=== PATIENT | male | born 1975 | race Caucasian/White ===

== ENCOUNTER 2023-03-14 08:06 | Emergency (ER) | payer OTHER, MEDICAID ==
[~2023-03-14] VITALS: Ht 170.2 cm; Wt 74.8 kg
[2023-03-14 08:15] VITALS: BP 110/76
[2023-03-14] MEDS ORDERED: SODIUM PHOSPHATE 118 ML ENEM RC ONE (09:40)
--- NOTE | 2023-03-14 09:42 | NUR ---
patient presents to er with home health care case manager c/o gen weakness, constipation no BM past 4 days.
[2023-03-14] MEDS ORDERED: MIRABULK PO (10:47)
[2023-03-14 11:38] VITALS: BP 118/60
--- NOTE | 2023-03-14 11:40 | NUR ---
patient condition stable no pain nausea vomitign ambulatory d/c home with instructions after care reviewed understood left er with leather polisher.
== END 2023-03-14 09:30 | disposition home or self-care (01) ==
LOC: MED 08:06
DX: K59.00 Constipation, unspecified (principal); F20.9 Schizophrenia, unspecified
CPT/HCPCS: 74022; 99284

== ENCOUNTER 2023-07-21 14:13 | Emergency (ER) | payer OTHER, MEDICAID ==
[~2023-07-21] VITALS: Ht 172.7 cm; Wt 63.5 kg
[~2023-07-21 14:13] MED LIST: MIRABULK PO
[2023-07-21 14:23] VITALS: BP 118/62; PULSE 78; RESP 18; TEMP 97; O2SAT 98
[2023-07-21 14:59] LABS: BASOPHILS % (AUTO) 0.5 % (0.0-2.0); EOSINOPHILS # (AUTO) 0.4 K/uL (0-0.4); EOSINOPHILS % (AUTO) 6.1 % (0.0-4.0); HEMATOCRIT 42.9 % (36-52); LYMPHOCYTES # (AUTO) 1.5 K/uL (2.0-11.5); MEAN CORPUSCULAR HEMOGLOBIN 28 pg (27-31); MEAN CORPUSCULAR HGB CONC 33 g/dL (33-37); MEAN CORPUSCULAR VOLUME 86.2 fL (80-94); MONOCYTES # (AUTO) 0.6 K/uL (0.8-1.0); MONOCYTES % (AUTO) 9.4 % (1.7-9.3); NEUTROPHILS # (AUTO) 4.1 K/uL (1.8-7.7); PLATELET COUNT (AUTO) 170 K/uL (140-450); RED BLOOD CELL COUNT(AUTO) 4.97 MIL/uL (4.20-6.10); RED CELL DISTRIBUTION WIDTH 14.1 % (11.6-13.7); WHITE BLOOD COUNT (AUTO) 6.6 K/uL (4.8-10.8)
[2023-07-21 15:40] LABS: ALANINE AMINOTRANSFERASE 28 U/L (12-78); ALBUMIN 3.8 g/dL (3.4-5.0); ALKALINE PHOSPHATASE 49 U/L (50-136); ANION GAP 9.1 (8-16); ASPARTATE AMINOTRANSFERASE 19 U/L (15-37); CALCIUM 9.5 mg/dL (8.5-10.1); CARBON DIOXIDE 31.5 mmol/L (21-32); CHLORIDE 105 mmol/L (98-107); GFR ARICAN-AMERICAN 103 mL/min (>90); GFR NON ARICAN-AMERICAN 85 mL/min (>90); GLUCOSE 146 mg/dL (74-106); POTASSIUM 4.6 mmol/L (3.5-5.1); SODIUM SERUM 141 mmol/L (136-145); TOTAL BILIRUBIN 0.2 mg/dL (0.0-1.0); TOTAL PROTEIN, SERUM 6.8 g/dL (6.4-8.2); UREA NITROGEN, BLOOD 17 mg/dL (7-18)
[2023-07-21 19:02] VITALS: BP 106/73; PULSE 74; RESP 12; TEMP 97; O2SAT 95
== END 2023-07-21 19:03 | disposition home or self-care (01) ==
LOC: MED 14:13
DX: R07.89 Other chest pain (principal); Z79.899 Other long term (current) drug therapy; E03.9 Hypothyroidism, unspecified
CPT/HCPCS: 36415; 71045; 80053; 84484; 85025; 93005; 99285